=== PATIENT | male | born 1950 | race Caucasian/White ===

== ENCOUNTER 2022-07-25 20:30 | Emergency (ER) | payer MEDICARE ==
[~2022-07-25] VITALS: Ht 177.8 cm; Wt 84.1 kg
[2022-07-25 20:41] VITALS: TEMP 98.1
[2022-07-25 21:25] LABS: BASO % 0.4 % (0.0-2.0); EOS # 0.1 K/mm3 (0.0-0.7); GRAN # 5.1 K/mm3 (1.4-6.5); GRAN % 72.9 % (42.2-75.2); HEMOGLOBIN 12.8 g/dl (13.5-18.0); LYMPH # 1.2 K/mm3 (1.2-3.4); LYMPH % 17.2 % (20.0-51.0); MEAN CELL VOLUME 88 fl (80.0-100.0); MEAN CORPUSCULAR HEMOGLOBIN 32 pg (27-31); MEAN CORPUSCULAR HGB CONC 36 g/dl (33.0-37.0); MEAN PLATELET VOLUME 8.7 fl (7.4-10.4); MONO # 0.6 K/mm3 (0.1-0.6); MONO % 7.9 % (1.7-9.3); PLATELET COUNT 198 K/mm3 (130-400); RED BLOOD COUNT 4.04 M/mm3 (4.20-5.60); REDCELL DISTRIBUTION WIDTH-CV 12.2 % (11.5-14.5)
[2022-07-25 21:26] LABS: HEMATOCRIT 35.5 % (42.0-52.0)
[2022-07-25 21:40] LABS: ALBUMIN 4.5 gm/dL (3.4-4.8); BILIRUBIN,TOTAL 0.5 mg/dL (0.2-1.2); CREATININE, serum 0.99 mg/dL (0.72-1.25); POTASSIUM 4.4 mmol/L (3.5-4.5); TOTAL PROTEIN 7.3 gm/dL (6.2-8.1)
[2022-07-25 22:10] VITALS: BP 180/90; PULSE 76
== END 2022-07-25 22:16 | disposition home or self-care (01) ==
LOC: COL.ER 20:30
PROVIDERS: Emergency Medicine
DX: R11.0 Nausea (principal); E86.0 Dehydration; E87.1 Hypo-osmolality and hyponatremia; E87.8 Other disorders of electrolyte and fluid balance, not elsewhere classified; I10 Essential (primary) hypertension
CPT/HCPCS: J2405; J7030